=== PATIENT | male | born 1990 ===

== ENCOUNTER 2017-03-08 17:46 | Emergency (ER) | payer OTHER ==
[2017-03-08 17:48] VITALS: BMI 41.3
[2017-03-08 17:52] VITALS: RESP 18; TEMP 97.4
[2017-03-08 18:26] LABS: RBC URINE 3350 /hpf (0-3); URINE BACTERIA RARE (<OCC); URINE BILIRUBIN NEGATIVE (NEGATIVE); URINE BLOOD 3+ (NEGATIVE); URINE COLOR Yellow (YELLOW); URINE GLUCOSE (UA) NORMAL (Normal); URINE KETONE NEGATIVE (NEGATIVE); URINE LEUKOCYTE ESTERASE 1+ Leu/uL (Negative); URINE PROTEIN 2+ mg/dL (NEGATIVE); URINE UROBILINOGEN NORMAL mg/dL (0.2-1.0); WBC URINE 71 /hpf (0-5)
--- NOTE | 2017-03-08 18:43 | C.PDOC ---
History Of Present Illness 27 y/o male presents to the ED with complains of dysuria and hematuria for the past couple days. Pt states toward the end of urination, has pain 5/10 with blood, not burning. . Pt denies history of STD, 1 partner, no protection. Pt is borderline diabetic and occasionally has frequency and urgency. Denies abdominal pain, fever, chills, back pain, nausea, vomiting, diarrhea, headache or any other complaints. Time Seen by Provider: 03/08/17 17:57 Chief Complaint (Nursing): Male Genitourinary History Per: Patient History/Exam Limitations: no limitations Onset/Duration Of Symptoms: Days Current Symptoms Are (Timing): Still Present Severity: Moderate Pain Scale Rating Of: 5 Quality Of Discomfort: Dull, "Pain" Associated Symptoms: Urinary Symptoms. denies: Fever, Chills, Nausea, Vomiting , Diarrhea, Back Pain Alleviating Factors: None Recent travel outside of the [place]: No Past Medical History Reviewed: Historical Data, Nursing Documentation, Vital Signs Vital Signs: Last Vital Signs Temp 97.4 F L 03/08/17 17:49 Pulse 90 03/08/17 17:49 Resp 18 03/08/17 17:49 BP 125/88 03/08/17 17:49 Pulse Ox 95 03/08/17 18:44 Family History: States: Unknown Family Hx - Social History Hx Alcohol Use: No Hx Substance Use: No - Immunization History Hx Tetanus Toxoid Vaccination: No Hx Influenza Vaccination: No Hx Pneumococcal Vaccination: No Review Of Systems Except As Marked, All Systems Reviewed And Found Negative. Constitutional: Negative for: Fever, Chills Gastrointestinal: Negative for: Nausea, Vomiting, Abdominal Pain, Diarrhea Genitourinary: Positive for: Dysuria, Frequency, Hematuria, Other (urgency) Neurological: Negative for: Headache Physical Exam - Physical Exam Appears: Non-toxic, No Acute Distress, Other (obese) Skin: Warm, Dry, No Rash Head: Atraumatic, Normacephalic Neck: Normal ROM Chest: Symmetrical Cardiovascular: Rhythm Regular, No Murmur Respiratory: Normal Breath Sounds, No Rales, No Rhonchi, No Wheezing Gastrointestinal/Abdominal: Normal Exam, Soft, No Tenderness Extremity: Bilateral: Atraumatic Neurological/Psych: Oriented x3 ED Course And Treatment O2 Sat by Pulse Oximetry: 95 (room air) Pulse Ox Interpretation: Normal Medical Decision Making Medical Decision Making: Plan: labs, urine Disposition - Disposition Disposition Time: 18:45 Condition: STABLE - Clinical Impression Clinical Impression: Hematuria - Scribe Statement The provider has reviewed the documentation as recorded by the Scribe Tahir Gonzalez Provider Attestation: All medical record entries made by the Clarissaibe were at my direction and personally dictated by me. I have reviewed the chart and agree that the record accurately reflects my personal performance of the history, physical exam, medical decision making, and the department course for this patient. I have also personally directed, reviewed, and agree with the discharge instructions and disposition. Physician Patient Turnover Patient Signed Over To: Yuliana De La Cruz Handoff Comments: patient with hematuria, pending labs and final dispo
[2017-03-08 19:11] LABS: BASO # 0.1 K/uL (0.0-0.2); BASO % 0.6 % (0.0-2.0); EOS # 0.2 K/uL (0.0-0.7); EOS % 1.7 % (0.0-4.0); HEMATOCRIT 41.9 % (35.0-51.0); LYMPH # 2.6 K/uL (1.0-4.3); LYMPH % 27.1 % (20.0-40.0); MEAN CELL VOLUME 84.3 fL (80.0-94.0); MEAN CORPUSCULAR HEMOGLOBIN 27.4 pg (27.0-31.0); MEAN CORPUSCULAR HGB CONC 32.5 g/dL (33.0-37.0); MEAN PLATELET VOLUME 9.1 fL (7.2-11.7); MONO # 0.8 K/uL (0.0-0.8); MONO % 8.6 % (0.0-10.0); NRBC % 0.1 % (0.0-2.0); RED CELL DISTRIBUTION WIDTH 13.4 % (11.5-14.5); WHITE BLOOD COUNT 9.8 K/uL (4.8-10.8)
[2017-03-08 19:20] LABS: CHLORIDE 100 mmol/L (98-107)
[2017-03-08 19:21] LABS: POTASSIUM 3.9 mmol/L (3.6-5.2); SODIUM 139 mmol/L (132-148)
[2017-03-08 19:23] LABS: ALB/GLOB RATIO 1.1 (1.0-2.1); ALKALINE PHOSPHATASE 82 U/L (38-126); AST/SGOT 31 U/L (17-59); BILIRUBIN,TOTAL 0.4 mg/dL (0.2-1.3); CARBON DIOXIDE 29 mmol/L (22-30); GFR AFRICAN-AMERICAN > 60; TOTAL PROTEIN 7.3 g/dL (6.3-8.3)
[2017-03-08 19:24] LABS: ALT/SGPT 32 U/L (21-72); BLOOD UREA NITROGEN 17 mg/dL (9-20); GLUCOSE,RANDOM 78 mg/dL (75-110)
[2017-03-08 19:54] VITALS: BP 122/85; PULSE 87; O2SAT 99
== END 2017-03-08 19:53 | disposition home or self-care (01) ==
LOC: C.ER 17:46
DX: R31.9 Hematuria, unspecified (principal)